=== PATIENT | female | born 2005 | race Two or more races ===

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

== ENCOUNTER 2024-11-07 23:47 | Inpatient (IN) | payer BC, OTHER ==
[~2024-11-07] VITALS: Ht 162.6 cm; Wt 72.6 kg
[2024-11-08] MEDS ORDERED: ONDANSETRON HCL 4 MG/2 ML VIAL IM ONE (02:15)
[2024-11-08] MEDS ORDERED: LIDOCAINE 2%HCL (LOCAL ANESTH.) INJ 20ML MDV IJ PRN (02:15)
[2024-11-08] MEDS: LACTATED RINGER'S 1,000 ML IV SCH (02:25)
--- NOTE | 2024-11-08 02:38 | DVHHP2 ---
OB CC & HPI Date Date of Admission: Nov 08, 2024 Patient Identification: : 4 Para: 2 EDC: Nov 15, 2024 Chief Complaints: Reason for admission: active labor Other reason for admission: Pain with contractions Admission Nurse Assessment Rev: Yes History of Present Complaints HPI: 19yo IUP@ 39w0d presents in labor. Pt reports UCs Q4-10 min that started yesterday. Wants an epidural. Denies LOF/VB/BILL/vision changes/RUQ pain. Reports good movement . PNC: Limited PNC with a OB in [place], changed due to insurance reasons. PNC complicated by iron deficiency anemia. 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 Staples. Plan: Admit to L&D Informed consent obtained Bedside ultrasound for EFW Discussed risks, benefits, Expectant management for now due to frequent UCs monitoring per order Routine labs ordered ANBX for GBS Unknown Pain mgmt 5mg Morphine IM with 4 mg Zofran IV Frequent position changes in and out of bed encouraged Limit SVE unless necessary Intrauterine resuscitation PRN Anticipate CNM will consult with Dr. Staples PRN Past Medical History Cardiac: No pertinent Hx Pulmonary: No pertinent Hx Central Nervous System: No pertinent Hx GI: No pertinent Hx Hemotology/Oncology: Iron deficiency anemia Hepatobiliary: No pertinent Hx Psychiatric: No pertinent Hx Musculoskeletal: No pertinent Hx Rheumotologic: No pertinent Hx Infectious Disease: No peritnent Hx ENT: No pertinent Hx Renal/: No pertinent Hx Endocrine: No pertinent Hx Dermatology: No pertinent Hx Others Dilation and Curettage 2023 OB History OB History Care: Limited Care Ultrasounds: Normal mid trimester US Obstetrical Complications: Other (GBS Unknown ) Medical Complications: None Other Concerns: Estimated Weight Allergies: Coded Allergies: NO KNOWN ALLERGIES (Unverified , 11/08/24) Home Meds Vitamin Current Medications Current Medications Medications (Trade) Dose Ordered Sig/Denny Route PRN Reason Start Time Stop Time Status Last Admin Lactated Ringer's 1,000 ml @ 125 mls/hr Q8H IV 11/08/24 02:15 UNV Penicillin G Potassium 1921273 units/Dextrose 50 ml @ 100 mls/hr Q4H IV 11/08/24 06:15 UNV Witch Yeny (Tucks) 1 pad PRN PRN TOP PERINEAL AREA DISCOMFORT 11/08/24 02:15 UNV Sodium Lauryl Sulfate (Phisoderm) 240 ml PRN PRN TOP PERINEAL AREA DISCOMFORT 11/08/24 02:15 UNV Benzocaine (Dermoplast) 1 applic PRN PRN TOP PERINEAL AREA DISCOMFORT 11/08/24 02:15 UNV Lidocaine HCl (Xylocaine) 20 ml ONCE PRN IJ PERINEAL AREA DISCOMFORT 11/08/24 02:15 UNV Family & Social History Family/Social History Blood Type: O+ Rubella: immune GBS Status: Unknown Review of Systems Constitutional: No symptom reported Ears, Nose, & Throat: No symptom reported Eyes: No symptom reported Pulmonary/Respiratory: No symptom reported Cardiovascular: No symptom reported Gastrointestinal: No symptom reported Genitourinary: No symptom reported Musculoskeletal: No symptom reported Skin: No symptom reported Psychiatric: No symptom reported Endocrine: No symptom reported Hemotologic/Lymphatic: No symptom reported OB Admission Exam Physical Exam Heart: Rhythm Normal Lungs: Clear Abdomen: Gravid Extremities: Normal Reflexes: Normal Pelvic Exam: /-3 by burial vault deliverer and installer Cervical Dilatation: 3cm Effacement: Other Station: -3 Membranes: Intact Heart Rate: 120's Accelerations: Accelerations Present Decelerations: No Decelerations Senior Living Variability: Average (6-25) Contractions on Admission: < 5 Minutes Apart Intensity: Moderate OB Plan Plan Admitting Diagnosis: Labor Plan: Expectant Management Visit Coding OBGYN Date of Service: Nov 08, 2024 Billing Provider: GURPREET BALTAZAR CNM QUALITY ASSURANCE MONITOR FINAL Common Visit Codes: [id number] OBS CARE (MOD) GURPREET BALTAZAR [facility] 2024 02:38
[2024-11-08 02:51] LABS: Mean Corpuscular Hemoglobin 24.5 pg (28.0-32.0); Mean Corpuscular Volume 74.6 fL (80.0-100.0); Nucleated Red Blood Cells % 0.1 %
[2024-11-08 02:53] LABS: Hematocrit 32.2 % (36.0-46.0); Hemoglobin 10.6 g/dL (12.2-16.2)
[2024-11-08] MEDS ORDERED: DIPHENOXYLATE W/ATROPINE 2.5 MG TAB PO PRN (03:00)
[2024-11-08] MEDS ORDERED: METHYLERGONOVINE MALEATE 0.2 MG/ML AMP IM PRN (03:00)
[2024-11-08] MEDS ORDERED: CARBOPROST TROMETHAMINE 250 MCG/1ML VIAL IM ONE (03:00)
[2024-11-08] MEDS: LACT. RINGERS/OXYTOCIN 20UNITS 1,000 ML IV ONE (03:04)
[2024-11-08 03:07] LABS: INR 0.89 (0.9-1.15); Partial Thromboplastin Time 27.2 SEC (24.5-34.5); Prothrombin Time 9.5 sec (9.3-11.8)
[2024-11-08 03:08] LABS: Alanine Aminotransferase 11 U/L (7-40); Albumin 4.1 g/dL (3.2-4.8); BUN/Creatinine Ratio 14.5 (10.0-20.0); Chloride 103 mmol/L (98-107); Potassium 3.9 mmol/L (3.5-5.1); Total Protein 7.3 g/dL (5.7-8.2)
[2024-11-08 03:09] LABS: Bilirubin, Total 0.3 mg/dL (0.2-1.0)
[2024-11-08] MEDS: LACT. RINGERS/OXYTOCIN 20UNITS 500 ML IV ONE ×2 (03:27→03:45)
[2024-11-08 03:39] LABS: Alkaline Phosphatase 140 U/L (46-116); Blood Urea Nitrogen 9 mg/dL (9-23); Calcium 8.3 mg/dL (8.7-10.4); Glucose 74 mg/dL (74-106); Sodium 134 mmol/L (136-145)
[2024-11-08 03:46] LABS: Urine Protein, UAD Negative (Negative)
[2024-11-08] MEDS: PENICILLIN G POT 5MIL/D5 50ML 50 ML IV ONE (03:51)
[2024-11-08 03:53] LABS: Amphetamine Screen, Urine Neg (NEGATIVE); Barbiturate Scree,Urine Neg (NEGATIVE); Benzodiazephine Screen, Urine Neg (NEGATIVE); Cannabinoid Screen, Urine Neg (NEGATIVE); Cocaine Screen, Urine Neg (NEGATIVE); Opiate Scree,Urine Neg (NEGATIVE); Phencyclidine Screen, Urine Neg (NEGATIVE)
[2024-11-08] MEDS: ONDANSETRON HCL 4 MG/2 ML VIAL IV STA (03:53)
[2024-11-08] MEDS: MORPHINE SULFATE 4 MG/ML SYR/VIAL IM ONE (03:56)
--- NOTE | 2024-11-08 04:00 | LDN2 ---
Labor and Delivery Note Date 11/08/24 Age 19 4 Para Para 3 AB AB 1 EDC EDC 11/15/2024 EGA 39w0d Diagnosis Note- At this 19yo now delivered 11/08/2024 @ 0323 a viable Male infant by w/ APGARS 8/9. MIRYAM. Infant placed skin to skin on pts chest. Cord clamped and cut after 3 min , pulsation ceased. Cord blood sent. Intact 3-vessel cord placenta delivered spontaneously @ 0331. Pitocin IV bolus started. Placenta sent to pathology. Morphine 5 Mg IVP given for pain. Cervix/vagina inspected (intact). Misoprostol 800 mcg given rectally Fundus at Umbilicus, firm, midline, and moderate lochia with clots. QBL 400ml. Count correct x2. Patient to care and baby to couplet care, both stable. Rectal mucosa and sphincter intact. Rectal exam performed, WNL, not involved. placental lobe noted, intact male Apgars 8,9 3355 grams / 7lbs 6 oz weight 20 in / 50.8 cm length Vaginal Delivery: VTX Vacuum Assisted: No Placenta: Spontaneous Sex: Male Apgars Apgars 1 min 8 Apgars 5 min 9 Nuchal Cord Transected: No Amniotic Fluid: Clear (Bloody ) Anesthesia No Episiotomy: No Extension: No EBL 400 Quantified Blood Loss Complications Precipitous delivery Possible Abruption Visit Coding OBGYN Date of Service: Nov 08, 2024 Billing Provider: GURPREET BALTAZAR CNM HEAD CHAR FILTER TANK TENDER Common Visit Codes: [id number] OBS CARE (MOD) GURPREET BALTAZARPRep 2024 04:00
[2024-11-08] MEDS: WITCH HAZEL-GLYCERIN PAD TOP PRN (04:15)
[2024-11-08] MEDS: PHISODERM TOP SOLN 240ML BTL TOP PRN (04:15)
[2024-11-08] MEDS: DERMOPLAST 60ML BOTTLE TOP PRN (04:15)
[2024-11-08 04:34] LABS: Anion Gap 10 (5-15)
[2024-11-08 04:35] LABS: Carbon Dioxide 21 mmol/L (20-31)
--- NOTE | 2024-11-08 04:38 | DVH ---
EXAM: US OB ULTRASOUND COMP GTR 14 WKS HISTORY: Limited care TECHNIQUE: Multiple real-time grayscale images of the gravid uterus with duplex Doppler color flow an d M-mode spectral analysis. COMPARISON: OB TRANS VAGINAL US on DOS: 02/27/22, OB ULTRASOUND COMP LESS 14WKS on DOS: 02/27/22 FINDINGS: IUP single live fetus at 38 weeks 6 days average ultrasound age (AUA) based on composite averages of the BPD, head circumference, abdominal circumference and femur length Age based on (early ultrasound) : 38 weeks 6 days MEASUREMENTS: BPD: 9.5 cm GA: 38 w 4 d HC: 34.1 cm GA: 39 w 2 d AC: 35.1 cm GA: 39 w 0 d FL: 7.5 cm GA: 38 w 4 d Estimated weight 3624 +/-543.6 grams; 8 lbs 0 oz, 67th percentile. heart rate 125 beats per minute Patient in active labor. ANATOMIC SURVEY: A complete anatomic survey was not performed at this time. Cephalic Presentation Anterior placenta without previa or abruption. IMPRESSION: 1. IUP single live fetus at 38 weeks 6 days AUA corresponding to an JONES of 11/16/2024. 2. No abnormality detected. Active labor.
[2024-11-08] MEDS ORDERED: PENICILLIN G POTASSIUM 2,500,000 UNITS in D5W 5% 50 ML IV SCH (06:15)
[2024-11-08 11:29] VITALS: BP 93/55; PULSE 70; RESP 18; TEMP 98.2; O2SAT 97
[2024-11-08] MEDS: IBUPROFEN 600 MG TAB PO PRN (11:35)
[2024-11-08 17:00] VITALS: BP 98/51; PULSE 58; RESP 18; TEMP 98.2; O2SAT 98
[2024-11-08 19:18] VITALS: BP 111/54; PULSE 66; RESP 18; TEMP 98.1; O2SAT 98
[2024-11-08] MEDS: ACETAMINOPHEN 325 MG TAB PO PRN (19:26)
[2024-11-08 23:30] VITALS: BP 94/51; PULSE 69; RESP 18; TEMP 98.2; O2SAT 98
--- NOTE | 2024-11-09 04:56 | DVHPN2 ---
Progress Note Date Seen: Nov 09, 2024 Subjective - Subjective 19yo now delivered 11/08/2024 @ 0323 a viable Male infant by w/ APGARS 8/9. PPD #1 bleeding is scant, eating food without issues, denies lightheaded/dizziness, pain well controlled with oral medications, no concerns with urinating, passing flatus, no BM yet, ambulating well, well Objective Blood Type O positive Rubella Immune VSS Vital Signs Date Time Temp Pulse Resp B/P (MAP) Pulse Ox O2 Delivery O2 Flow Rate FiO2 11/08/24 23:30 98.2 69 18 94/51 (65) 98 98.2 11/08/24 19:28 Room Air Physical Exam Chest: heart sounds normal and lung sounds clear bilaterally Abd: soft, non-tender, Fundus at -1 Umbilicus/firm/midline Perineum: Intact Lochia: Scant active bowel sounds, no rebound or guarding Ext: Non-tender, No edema, 2+ BLE DTRs Laboratory Tests Test 11/08/24 02:15 11/08/24 02:29 Range/Units Urine Color Colorless Yellow Urine Clarity Clear Clear Urine pH 7.0 5.0-9.0 Urine Specific Arnold 1.011 1.001-1.035 Urine Protein Negative Negative Urine Ketones 1+ H Negative Urine Blood 3+ H Negative /uL Urine Nitrite Negative Negative Urine Bilirubin Negative Negative Urine Urobilinogen Normal Negative mg/dL Urine Leukocyte Esterase 2+ Negative /uL Urine RBC 972 0 - 4 /hpf Urine Microscopic WBC 14 H 0-5 /HPF Urine Squamous Epithelial Cells Few <5 /hpf Urine Bacteria None seen None Seen /hpf Urine Glucose Normal Normal mg/dL Urine Opiates Screen Neg NEGATIVE Urine Fentanyl Screen Neg NEGATIVE Urine Barbiturates Screen Neg NEGATIVE Urine Phencyclidine Screen Neg NEGATIVE Urine Amphetamines Screen Neg NEGATIVE Urine Benzodiazepines Screen Neg NEGATIVE Urine Cocaine Screen Neg NEGATIVE Urine Cannabinoids Screen Neg NEGATIVE White Blood Count 8.9 4.4-10.8 10^3/uL Red Blood Count 4.32 4.0-5.20 10^6/uL Hemoglobin 10.6 L 12.2-16.2 g/dL Hematocrit 32.2 L 36.0-46.0 % Mean Corpuscular Volume 74.6 L 80.0-100.0 fL Mean Corpuscular Hemoglobin 24.5 L 28.0-32.0 pg Mean Corpuscular Hemoglobin Concent 32.8 32.0-36.0 g/dL Red Cell Distribution Width 15.7 H 11.8-14.3 % Platelet Count 184 140-450 10^3/uL Mean Platelet Volume 10.6 6.9-10.8 fL Neutrophils (%) (Auto) 60.3 37.0-80.0 % Lymphocytes (%) (Auto) 30.1 10.0-50.0 % Monocytes (%) (Auto) 7.0 0.0-12.0 % Eosinophils (%) (Auto) 2.2 0.0-7.0 % Basophils (%) (Auto) 0.4 0.0-2.0 % Neutrophils # (Auto) 5.4 1.6-8.6 10 ^3/uL Lymphocytes # (Auto) 2.7 0.4-5.4 10 ^3/uL Monocytes # (Auto) 0.6 0-1.3 10 ^3/uL Eosinophils # (Auto) 0.2 0-0.8 10 ^3/uL Basophils # (Auto) 0 0-0.2 10 ^3/uL Nucleated Red Blood Cells 0.1 % Prothrombin Time 9.5 9.3-11.8 sec Prothrombin Time INR 0.89 L 0.9-1.15 Activated Partial Thromboplast Time 27.2 24.5-34.5 SEC Sodium Level 134 L 136-145 mmol/L Potassium Level 3.9 3.5-5.1 mmol/L Chloride Level 103 98-107 mmol/L Carbon Dioxide Level 21 20-31 mmol/L Anion Gap 10 5-15 Blood Urea Nitrogen 9 9-23 mg/dL Creatinine 0.62 0.550-1.02 mg/dL Glomerular Filtration Rate Calc 131 >90 mL/min BUN/Creatinine Ratio 14.5 10.0-20.0 Serum Glucose 74 74-106 mg/dL Calcium Level 8.3 L 8.7-10.4 mg/dL Total Bilirubin 0.3 0.2-1.0 mg/dL Aspartate Amino Transferase (AST) 20 13-40 U/L Alanine Aminotransferase (ALT) 11 7-40 U/L Alkaline Phosphatase 140 H 46-116 U/L Total Protein 7.3 5.7-8.2 g/dL Albumin 4.1 3.2-4.8 g/dL Treponema pallidum Antibody Non-reactive Negative Assessment: 19y/o now PPD#1 Precipitous delivery Short Interval Possible Abruption Limited PNC due to insurance GBS unknown and treated for Hx GBS in previous Iron deficiency y anemia in Blood Type O positive Rubella Immune Combo Feeding breast and formula Plan: D/C home today Rx sent to pharmacy precautions and preeclampsia warning signs reviewed F/U with [facility] office for appointment for care Activity: as tolerated, no heavy lifting and nothing in the vagina for 6 weeks vital signs Vital Sign Date Time Temp Pulse Resp B/P (MAP) Pulse Ox O2 Delivery O2 Flow Rate FiO2 11/08/24 23:30 98.2 69 18 94/51 (65) 98 98.2 11/08/24 19:28 Room Air Total Intake and Output 11/08/24 11/08/24 11/09/24 15:00 23:00 07:00 Output Total 1300 ml 500 ml Balance -1300 ml -500 ml medications Current Medications Medications Dose Ordered Sig/Denny Route Start Time Stop Time Status Last Admin Dose Admin Maykel Yeny 1 pad PRN PRN TOP 11/08/24 02:15 11/08/24 04:15 1 PAD Sodium Lauryl Sulfate 240 ml PRN PRN TOP 11/08/24 02:15 11/08/24 04:15 240 ML Benzocaine 1 applic PRN PRN TOP 11/08/24 02:15 11/08/24 04:15 1 APPLIC Ibuprofen 600 mg Q6HP PRN PO 11/08/24 08:00 11/08/24 11:35 600 MG Acetaminophen 650 mg Q4HP PRN PO 11/08/24 08:00 11/08/24 19:26 650 MG laboratory and microbiology Laboratory Tests 11/08/24 02:29 Test 11/08/24 02:29 Range/Units Serum Glucose 74 74-106 mg/dL Plan discussed with: Patient Visit Coding OBGYN Date of Service: Nov 09, 2024 Billing Provider: GURPERET BALTAZAR CNM MACHINE SIGN WRITER Common Visit Codes: [id number] OBS CARE (MOD) GURPREET BALTAZARALep 2024 04:56
[2024-11-09 06:58] VITALS: BP 98/52; PULSE 64; RESP 20; TEMP 98.1; O2SAT 98
--- NOTE | 2024-11-09 07:38 | DVHDS2 ---
Obstetrics Discharge Summary Obstetrics Discharge Summary Date of Admission: Nov 08, 2024 Date of Discharge: Nov 09, 2024 Reason For Admission: Onset of Labor Procedures: NST, Ultrasound Intrapartum Procedures: Spontaneous vaginal deliv Procedures: None Operative Complicat: None Discharge Diagnosis: Term -Delivered Discharge Information: Activity (as tolerated, no heavy lifting, nothing in the vagina for 6 weeks), Diet (Routine), Medications (Rx sent), Instructions (Routine), Discharge to (Home), Accompanied by (family), Discarge date (11/09/24) Visit Coding OBGYN Date of Service: Nov 09, 2024 Billing Provider: BHAVIN DODSON CNM DAM TENDER Common Visit Codes: [id number] DISCH DAY <30MIN BHAVIN DODSON CNM Nov 09, 2024 07:38
[2024-11-09] MEDS ORDERED: DOCU-94 PO (07:46)
[2024-11-09] MEDS ORDERED: IBU600T PO (07:46)
[2024-11-09] MEDS ORDERED: PREN-96 PO (07:46)
[2024-11-09] MEDS ORDERED: FERR324T16 PO (07:46)
[2024-11-09 10:43] VITALS: BP 112/54; PULSE 63; RESP 16; TEMP 97.5; O2SAT 98
== END 2024-11-09 14:04 | disposition home or self-care (01) | DRG 807 ==
LOC: LDRP 23:47 → OBSVTOIN 11-08 02:05 → LDRP 11-08 02:12
PROVIDERS: ADMIT Obstetrics & Gynecology; ATTEND Obstetrics & Gynecology
PROC: 10E0XZZ Delivery of Products of Conception, External Approach (ICD-10-PCS; principal; 2024-11-08)
DX: O99.02 Anemia complicating childbirth (principal); Z37.0 Single live birth; Z3A.39 39 weeks gestation of pregnancy; O62.3 Precipitate labor; D50.9 Iron deficiency anemia, unspecified
CPT/HCPCS: 36415; 59025; 59409; 76805; 80053; 80307; 81001; 81002; 85025; 85610; 85730; 86780; 86850; 86900; 86901; 94760; 94762; 96360; 96361; 96365; 96366; 96374; 96375; G0378; J2405; J2540; J2590; J7060